=== PATIENT | female | born 1995 | race Caucasian/White ===

== ENCOUNTER 2023-12-11 17:38 | Emergency (ER) | payer BC, MEDICARE, SELFPAY ==
[2023-12-11 17:39] VITALS: BP 131/94
[2023-12-11 18:03] LABS: % Basophils 0.1 % (0-2); % Eosinophils 1.2 % (0-6); % Immature Granulocytes 0.3 % (0-0.5); % Lymphocytes 32.9 % (20.5-51.1); % Monocytes 8.5 % (1.7-9.3); Absolute Eosinophils 0.1 10^3/uL (0-0.7); Absolute Lymphocytes 2.6 10^3/uL (1.2-3.4); Absolute Monocytes 0.7 10^3/uL (0.1-0.6); Absolute Neutrophils 4.4 10^3/uL (1.4-6.5); Hematocrit 41.3 % (37.0-47.0); Hemoglobin 14.1 g/dL (12.0-16.0); Mean Corp Hgb Conc. 34.1 g/dL (33.0-37.0); Mean Corpuscular Hgb 32.3 pg (27.0-31.0); Mean Corpuscular Volume 94.7 fL (81.0-99.0); Mean Platelet Volume 9.2 fL (7.4-10.4); Nucleated Red Blood Cells % 0 %; Platelet Count 196 10^3/uL (130-400); Red Blood Cell Count 4.36 10^6/uL (4.20-5.40); Red Cell Dist. Width 12.3 % (11.5-14.5); White Blood Cell Count 7.8 10^3/uL (4.8-10.8)
[2023-12-11 18:18] LABS: Amphetamines Negative (Negative); Barbiturates Negative (Negative); Benzodiazepines Negative (Negative); Buprenorphine Negative (Negative); Cocaine Negative (Negative); Marijuana Negative (Negative); Methadone Negative (Negative); Methamphetamines Negative (Negative); Opiates Negative (Negative); Phencyclidine Negative (Negative); Tricyclic Antidepressants Negative (Negative)
[2023-12-11 18:18] LABS: Blood Urea Nitrogen 15 mg/dl (7-17); Calcium 8.6 mg/dl (8.4-10.2); Carbon Dioxide 29 mmol/L (22-30); Chloride 102 mmol/L (98-107); Glucose 95 mg/dl (70-99); Potassium 4.3 mmol/L (3.5-5.1); Sodium 135 mmol/L (135-145); eGFR > 60.00
[2023-12-11 18:24] LABS: Alcohol None Detected
--- NOTE | 2023-12-11 19:01 | ED.GENMED ---
History of Present Illness
General
Chief Complaint: Crisis Evaluation
Source: patient
Time Seen by Provider: 12/11/23 18:51
Travel History
Have you had any contact with someone who has COVID-19?: No
Do you have any symptoms of coronavirus? Fever > 100 degrees, chills, cough, shortness of breath, sore throat, loss of taste or smell, muscle aches, or headache?: No
History of Present Illness
History of Present Illness:
This patient is a 28-year-old female with a history of depression, lives in a retirement, who recently has been hearing voices. She presents emergency department for medical clearance before returning to crisis for further disposition/management of
her psychiatric illness. Patient denies any physical complaints. She is currently eating a sandwich when I enter the room. She denies chest pain, dyspnea, abdominal pain, urinary symptoms, headache, dizziness, or other complaints.
Past History
Past History
ED Past Medical History: Psychiatric (Depression.)
ED Past Surgical History: None
Social History
Tobacco: Non-smoker
Alcohol: None
Drug: None
Personal: Single
Living: with family
Family History
Family History: Other (Nonsignificant)
Phy Exam
Physical Exam
Physical Exam:
GENERAL: Alert , in no apparent distress
EYE: pupils equal and reactive
NECK: Supple, no significant adenopathy.
ENT: o/p clr, mmm.
CARDIAC: Regular rate and rhythm .
LUNGS: Clear breath sounds bilaterally, no acute respiratory distress, no wheezes/rales/rhonchi
ABDOMEN: Soft, without focal tenderness, no r/g, no cvat
NEUROLOGICAL: Alert and oriented, no focal neuro deficits
SKIN: Warm and dry, skin intact, right inner forearm with healing wounds, no associated secondary infection, no drainage streaking crepitus fluctuance..
MUSCULOSKELETAL: No edema, well perfused.
PSYCH: Flattened affect, admits to hearing voices
Course
Orders/Labs/Results
Orders:
Orders
12/11/23 17:53
Alcohol Urgent
Basic Metabolic Panel Urgent
Complete Blood Count/With Diff Urgent
HCG, Serum Qualitative Screen Urgent
Comment: ADD ON
12/11/23 17:54
Urine Drug Abuse Screen Urgent
Date Specimen was Collected: 12/11/23
Time Specimen was Collected: 17:44
12/11/23 19:02
Add On- LAB Urgent
Tests Added?: hcg (serum)
12/11/23 20:09
Lorazepam [Ativan] 2 mg .ROUTE .STK-MED ONE
12/11/23 20:11
Lorazepam [Ativan] 1 mg IM NOW STA
12/12/23 13:00
Fluvoxamine [Luvox] 150 mg PO DAILY
Fluvoxamine [Luvox] 50 mg PO TID
12/12/23 13:04
Olanzapine [Zyprexa] 5 mg PO Q6HPRN PRN
12/12/23 16:00
HydrOXYZINE [Atarax] 50 mg PO TID
12/12/23 20:00
Clonazepam [Klonopin] 0.5 mg PO BID
12/12/23 22:00
Olanzapine [Zyprexa] 5 mg PO HS
Abnormal Lab Results
12/11/23
17:53
MCH 32.3 H pg
(27.0-31.0)
Absolute Monos (auto) 0.7 H 10^3/uL
(0.1-0.6)
12/11/23 17:53
12/11/23 17:53
Vital Signs
Initial and Last Documented VS:
Initial Vital Signs
Temp Pulse Resp BP Pulse Ox
98.5 F 68 18 131/94 100
12/11/23 17:39 12/11/23 17:39 12/11/23 17:39 12/11/23 17:39 12/11/23 17:39
Last Documented Vital Signs
Temp Pulse Resp BP Pulse Ox
98.5 F 68 18 131/94 100
12/11/23 17:39 12/11/23 17:39 12/11/23 17:39 12/11/23 17:39 12/11/23 17:39
*Critical Care Note
Total Time (30-74mins, 75-104mins- exclusive of procedures): Not Applicable
Update Note
Update Note:
Patient presents to the Emergency Department with ____hearing voices, SI
Number and Complexity of Problems Addressed at the Encounter
� Chronic conditions affecting care:
� Acute Exacerbation and/or Progression of Chronic Illness:
� Differential Diagnosis includes: But not limited to schizophrenia, major depressive disorder, etc.
Amount and/or Complexity of Data to be Reviewed and Analyzed
� I performed an independent evaluation of and my interpretation is:
EKG:
CT:
Xrays:
Laboratory Studies:
Other:
� Review of other/old records reveals:
� Clinical information was obtained by an independent historian:
� Prescriptions/Medications Considered but not given:
� Further testing considered but not performed:
Risk of Complications and/or Morbidity or Mortality of Patient Management
� Social determinants of health affecting care:
� Discussion with other providers (PCP, Hospitalists, Consultants, etc):
� Escalation of care including admission/observation vs risk of discharge considered: Physical exam unremarkable, labs unremarkable here. I noticed that a hCG was not ordered. I added this on. Patient otherwise medically
cleared to return to crisis for further care.
ED Attending Note
-
Portions of this chart may have been created with voice recognition software.� Occasional wrong word or��sound alike� substitutions may have occurred due to the inherent limitations of voice recognition software.
Discharge Plan
Departure
Patient Disposition: [facility]
Date of Disposition: 12/11/23
Time of Disposition: 19:01
Condition: Fair
Discharge Problem:
Depression
Instructions: Depression, Adult (DC), BLOOD PRESSURE
Prescriptions:
No Action
acetaminophen [Tylenol] 325 mg Tablet
650 mg PO Q6H PRN (Reason: mild pain)
Triple Antibiotic 3.5mg-400 unit- 5,000 unit/gram ointment
1 applic TOPICAL BID@0800,1999
sucralfate 1 gram Tablet
1 g PO BID@0800,1600
naltrexone 50 mg Tablet
50 mg PO DAILY
clonazepam 0.5 mg Tablet
0.5 mg PO BID@1199,1999
Patient Comments:
12/12/2023, pt. filled this med. on 12/03/2023 for 22 tablets according to PDMP.
desmopressin 0.2 mg Tablet
0.2 mg PO DAILY@1999
hydroxyzine pamoate 50 mg Capsule
50 mg PO TID@0800,1199,1999
olanzapine 10 mg Tablet
10 mg PO DAILY PRN (Reason: agitation)
levocarnitine 330 mg Tablet
660 mg PO TID@0800,1199,1999
carbamazepine 200 mg tablet
200 mg PO TID@0800,1199,1999
valproic acid (as sodium salt) 250 mg/5 mL solution
750 mg PO DAILY
valproic acid (as sodium salt) 250 mg/5 mL solution
1,000 mg PO HS
lorazepam 2 mg Tablet
2 mg PO Q8HPRN PRN (Reason: anxiety)
Patient Comments:
12/12/2023, pt. filled this med. on 10/28/2023 for 15 tablets according to PDMP.
cephalexin 500 mg Capsule
500 mg PO TID
Patient Comments:
12/12/2023, per psych core assembly supervisor at [facility], pt. has 2 days left of this med. Pt. filled this med. on 12/03/2023 and is instructed to take one capsule TID for 10 days.
pantoprazole 40 mg Tablet,Delayed Release (Dr/Ec)
40 mg PO DAILY
docusate sodium 100 mg Capsule
100 mg PO BID@0800,1999
bismuth subsalicylate [Stomach Relief] 262 mg tablet,chewable
262 mg PO Q6HPRN PRN (Reason: indigestion)
fluvoxamine 50 mg Tablet
150 mg PO BID
polyethylene glycol 3350 17 gram/dose powder
17 g PO DAILY@1999
oxybutynin chloride 5 mg Tablet
5 mg PO BID@0800,1600
fluticasone propionate 50 mcg/actuation Walker,Suspension
1 spray INTRANASAL BID PRN (Reason: congestion)
prazosin 2 mg Capsule
2 mg PO HS
Vraylar 6 mg Capsule
6 mg PO DAILY@1999
Referrals:
Sol Castillo DO [Family Provider] -
Activity Restrictions/Additional Instructions:
PLEASE PROCEED TO THE CRISIS AREA FOR FURTHER TREATMENT AND CARE.
Interventions
Interventions:
*Risk Screen - Suicide Last Done: 12/11/23 18:50
*General Assessment Last Done: 12/11/23 18:50
*Neglect/Abuse Screening Last Done: 12/11/23 18:50
*ED COVID-19 Vaccine History Last Done: 12/11/23 18:50
*Nursing Disposition Last Done: 12/12/23 05:09
ED-Psychological Assessment Last Done: 12/11/23 18:50
Discharge Date and Time
Discharge Date/Time: 12/12/23 05:11
[2023-12-11 19:35] LABS: HCG, Serum Qualitative Screen Negative
[2023-12-11] MEDS: ATIVAN 1 MG IM (20:12)
--- NOTE | 2023-12-12 11:19 | CON.MD ---
Addendum entered and electronically signed by Consuelo Mckeon MD 12/12/23 12:37:
correction- Luvox ordered as 50 mg 3 q am
Addendum entered and electronically signed by Consuelo Mckeon MD 12/12/23 12:01:
Luvox not available in hospital, could not order.
Original Note:
Consultation - Medical
-
and [facility] charts reviewed; pt seen. -45 minutes total
28 year old single white female who lives in a longterm for psychiatric patients, began hearing voices more intensely and having suicidal ideation a few days ago. She came in to the ER to get help, seeking hospitalization.
I met with patient and reviewed chart.
Earlier today pt became acutely agitated and required restraints. She was given Ativan and Benadryl and at the moment I saw her had calmed down considerably and said she doesn't remember what happened at all. Her status has been changed from
voluntary to involuntary.
She was able to tell me that she had written a poem about killing herself and read it to her parents- which is the reason she came to the ER. She has frequent dissociative episodes, and the agitation she displayed earlier today is likely one
of these.
Her current meds- from the [facility] partial hosp program are :
Valproic acid 250 mg/5 ml - 15 mg 1 am and 20 mg 1 HS
Klonopin .5 mg BID
Hydroxyzine 50 mg TID
Olanzapine 10 mg prn agitation, and Olanzapine 5 mg prn agitation
Luvox 50 mg 2 q am
Naltrexone 50 mg 1 daily
It does not appear that she has received these meds since coming to the hospital
MSE- Young white female, lying in bed, drowsy but able to speak to me. Speech slightly slurred.
Admits to severely depressed mood, having thoughts of suicide, also hears voices 'all the time' which she cannot describe to me.
Insight and judgment impaired.
A/P- Schizoaffective disorder, currently depressed
Requires 302 to be upheld; we will continue looking for an inpatient facility for patient.
I will order her psych meds to ensure she doesn't have further agitation.
== END 2023-12-12 05:11 ==
LOC: EMR 17:38
PROVIDERS: EMERGENCY PHYSICIAN Emergency Medicine; FAMILY PHYSICIAN Family Medicine
DX: F32.A Depression, unspecified (principal)
CPT/HCPCS: 99284; 96372; 80048; 80306; 82077; 84703; 85025

== ENCOUNTER 2023-12-12 08:24 | Emergency (ER) | payer BC, MEDICARE, SELFPAY ==
[2023-12-12 08:29] VITALS: BP 138/86
--- NOTE | 2023-12-12 08:35 | EDRN ---
Pt is in crisis awaiting a room.
--- NOTE | 2023-12-12 08:35 | EDRN ---
Pt needs her usual medications and some are 4 times a day. This RN spoke to battery charger tester and Liliana suggested she get her usual meds brought in from her home so she can take her meds in crisis area.
[2023-12-12 09:12] VITALS: BP 125/88
--- NOTE | 2023-12-12 09:22 | EDRN ---
this RN received this pt from triage, the pt is calm, and cooperative with a flat affect, the pt was sent to ED from crisis for medications, the pt stated to this RN that she does not have a medication list and the pt called staff at [facility]
where the pt lives and the staff there read off the pts medications to this RN, this RN has made a list for pharmacy associate to review and confirm
[2023-12-12 09:27] VITALS: BMI 27.3
--- NOTE | 2023-12-12 09:30 | EDRN ---
the pt stated to this RN, 'I am sorry if i get weird or crazy, i hear voices sometimes, and sometimes i feel like i want to kill myself, i don't mean to hurt anyone', this RN asked the pt if she felt like she was going to hurt someone right now and
the pt denied wanting to hurt anyone, this RN placed the pt on intermittent observation
--- NOTE | 2023-12-12 09:55 | EDRN ---
the pt pressed the call alexander and this RN entered the pts room, the pt stated to this RN that she needed to use the bathroom, the pt was able to ambulate to the bathroom and back to the stretcher, the pt is resting in stretcher in the lowest
position, side rails up x1, HOB slightly elevated, call alexander within reach, the pt ate all of her breakfast, will continue to monitor the pt closely
--- NOTE | 2023-12-12 09:57 | ED.GENMED ---
History of Present Illness
General
Chief Complaint: Suicidal Ideation
Source: patient and other (inventory worker)
Time Seen by Provider: 12/12/23 09:51
Travel History
Have you had any contact with someone who has COVID-19?: No
Do you have any symptoms of coronavirus? Fever > 100 degrees, chills, cough, shortness of breath, sore throat, loss of taste or smell, muscle aches, or headache?: No
History of Present Illness
History of Present Illness:
Patient sent back to the ER for her medications. She has no acute complaints. This is all for her baseline medications which they cannot administer over crisis. Patient has been stable
Past History
Past History
ED Past Medical History: Psychiatric (Depression.)
ED Past Surgical History: None
Social History
Tobacco: Non-smoker
Alcohol: None
Drug: None
Personal: Single
Living: with family
Family History
Family History: Other (Nonsignificant)
Review of Systems
Review of Systems
All Other Systems: Not applicable
Constitutional: Denies fever
Respiratory: Reports no symptoms
Cardiac: Reports no symptoms
Phy Exam
Physical Exam
Physical Exam:
GENERAL: Alert and oriented in no apparent distress. Cooperative. Somewhat quiet. Watching TV
EYE: Orbits normal.
NECK: Supple
ENT: Pharynx without erythema
CARDIAC: Regular rate and rhythm without any obvious murmurs.
LUNGS: Clear breath sounds,normal
ABDOMEN: Soft, without focal tenderness or distention
NEUROLOGICAL: Alert and oriented , grossly non-focal
SKIN: Warm and dry, no rash or lesion, no discoloration, skin intact.
MUSCULOSKELETAL: No edema,no deformity.Good color
PSYCH: Normal and appropriate interaction.
Course
Orders/Labs/Results
Orders:
Orders
12/12/23 10:16
Haloperidol Lactate [Haldol] 5 mg .ROUTE .STK-MED ONE
Lorazepam [Ativan] 2 mg .ROUTE .STK-MED ONE
Lorazepam [Ativan] 2 mg IM NOW STA
12/12/23 10:19
1:1 Observation - Suicide/ Violent Behavior As Directed
One to One Observation - Suicide/Violent [1:1 Observation - Suicide/ Violent Behavior] As Directed
Restraints - Violent As Directed
Restraint Type-: Locked-4 point/4 rails
Apply From (date): 12/12/23
Apply from (time): 10:19
Remove (date): 12/12/23
Remove (time): 14:19
12/12/23 10:27
PSYCHIATRY CONSULT Urgent
Consulting Provider: Consuelo Mckeon
Was physician already notified: Yes
12/12/23 10:31
Diphenhydramine [Benadryl] 50 mg .ROUTE .STK-MED ONE
12/12/23 10:40
Diphenhydramine [Benadryl] 50 mg IV NOW STA
12/12/23 12:00
Valproic Acid Syrup [Depakene] 750 mg PO DAILY
12/12/23 12:26
1:1 Observation - Suicide/ Violent Behavior As Directed
Restraints - Violent As Directed
Restraint Type-: Locked-4 point/4 rails
Apply From (date): 12/12/23
Apply from (time): 14:19
Remove (date): 12/12/23
Remove (time): 16:26
12/12/23 15:00
Naltrexone HCl [Revia] 50 mg PO DAILY
Pantoprazole [Protonix] 40 mg PO DAILY
Polyethylene Glycol Powder [Miralax] 17 grams PO DAILY
12/12/23 15:20
Naltrexone HCl [Revia] 50 mg PO DAILY
Pantoprazole [Protonix] 40 mg PO DAILY
12/12/23 15:22
Polyethylene Glycol Powder [Miralax] 17 grams PO DAILY
12/12/23 16:00
Carbamazepine [Tegretol] 200 mg PO TID
HydrOXYZINE [Atarax] 50 mg PO TID
12/12/23 18:00
Cephalexin Monohydrate [Keflex] 500 mg PO QID
Valproic Acid Syrup [Depakene] 1,000 mg PO QPM
12/12/23 20:00
Clonazepam [Klonopin] 0.5 mg PO BID
Docusate Sodium [Colace] 100 mg PO BID
Fluvoxamine [Luvox] 150 mg PO BID
Oxybutynin Chloride [Ditropan] 5 mg PO BID
Sucralfate [Carafate] 1 gram PO BID
12/12/23 20:43
1:1 Observation - Suicide/ Violent Behavior As Directed
Restraints - Violent As Directed
Restraint Type-: Locked-4 point/4 rails
Apply From (date): 12/12/23
Apply from (time): 20:43
Remove (date): 12/13/23
Remove (time): 00:43
12/12/23 21:55
Lorazepam [Ativan] 1 mg IV NOW STA
12/12/23 21:56
Lorazepam [Ativan] 2 mg .ROUTE .STK-MED ONE
12/12/23 22:00
Desmopressin [Ddavp] 0.2 mg PO HS
Prazosin HCl [Minipress] 2 mg PO HS
Valproic Acid [Depakene] 250 mg PO HS
12/12/23 22:06
Asenapine Sublingual [Saphris] 10 mg SL NOW STA
12/13/23 17:24
Midazolam HCl [Versed] 5 mg IM NOW STA
12/13/23 17:25
Midazolam HCl [Versed] 5 mg .ROUTE .STK-MED ONE
12/13/23 17:43
Ketamine Concentrate Injection [Ketamine HCl] 310 mg IM NOW STA
12/13/23 17:53
Midazolam HCl [Versed] 5 mg IM NOW STA
12/13/23 19:05
Restraints - Violent As Directed
Restraint Type-: Locked-4 point/4 rails
Apply From (date): 12/13/23
Apply from (time): 17:15
Remove (date): 12/13/23
Remove (time): 19:15
12/13/23 22:00
Desmopressin [Ddavp] 0.2 mg PO HS
12/15/23 20:00
Fluvoxamine [Luvox] 150 mg PO BID
Oxybutynin Chloride [Ditropan] 5 mg PO BID
Vital Signs
Initial and Last Documented VS:
Initial Vital Signs
Temp Pulse Resp BP Pulse Ox
97.8 F 74 16 138/86 99
12/12/23 08:29 12/12/23 08:29 12/12/23 08:29 12/12/23 08:29 12/12/23 08:29
Last Documented Vital Signs
Temp Pulse Resp BP Pulse Ox
97.7 F 68 18 88/68 98
12/14/23 21:12 12/15/23 23:46 12/15/23 21:18 12/15/23 23:46 12/15/23 21:18
MDM/Problems Addressed
Differential Diagnosis Includes:
Patient has remained medically stable as a voluntary admission. No acute medical issues. Has returned to our department for routine medications. We are waiting to confirm these to order
*Critical Care Note
Total Time (30-74mins, 75-104mins- exclusive of procedures): Not Applicable
Data Reviewed
Review of Other/Old Records Reveals: Labs and Records
Update Note
Update Note:
1100... Already discussed with psychiatry. Agree with management. We could use Saphris if needed. However patient is resting comfortably after Ativan and Benadryl. Converted to 302. Awaiting med confirmation before ordering her baseline meds
ED Attending Note
-
Portions of this chart may have been created with voice recognition software.� Occasional wrong word or��sound alike� substitutions may have occurred due to the inherent limitations of voice recognition software.
Discharge Plan
Departure
Patient Disposition: Psych Facility
Date of Disposition: 12/12/23
Time of Disposition: 10:58
Discharge Problem:
Depression/dangerous behavior, Psychiatric committal
Prescriptions:
No Action
acetaminophen [Tylenol] 325 mg Tablet
650 mg PO Q6H PRN (Reason: mild pain)
Triple Antibiotic 3.5mg-400 unit- 5,000 unit/gram ointment
1 applic TOPICAL BID@0800,1999
sucralfate 1 gram Tablet
1 g PO BID@0800,1600
naltrexone 50 mg Tablet
50 mg PO DAILY
clonazepam 0.5 mg Tablet
0.5 mg PO BID@1199,1999
Patient Comments:
12/12/2023, pt. filled this med. on 12/03/2023 for 22 tablets according to PDMP.
desmopressin 0.2 mg Tablet
0.2 mg PO DAILY@1999
hydroxyzine pamoate 50 mg Capsule
50 mg PO TID@0800,1200,1999
olanzapine 10 mg Tablet
10 mg PO DAILY PRN (Reason: agitation)
levocarnitine 330 mg Tablet
660 mg PO TID@0800,1200,1999
carbamazepine 200 mg tablet
200 mg PO TID@0800,1200,1999
valproic acid (as sodium salt) 250 mg/5 mL solution
750 mg PO DAILY
valproic acid (as sodium salt) 250 mg/5 mL solution
1,000 mg PO HS
lorazepam 2 mg Tablet
2 mg PO Q8HPRN PRN (Reason: anxiety)
Patient Comments:
12/12/2023, pt. filled this med. on 10/28/2023 for 15 tablets according to PDMP.
cephalexin 500 mg Capsule
500 mg PO TID
Patient Comments:
12/12/2023, per psych field pipelines supervisor at [facility], pt. has 2 days left of this med. Pt. filled this med. on 12/03/2023 and is instructed to take one capsule TID for 10 days.
pantoprazole 40 mg Tablet,Delayed Release (Dr/Ec)
40 mg PO DAILY
docusate sodium 100 mg Capsule
100 mg PO BID@0800,1999
bismuth subsalicylate [Stomach Relief] 262 mg tablet,chewable
262 mg PO Q6HPRN PRN (Reason: indigestion)
fluvoxamine 50 mg Tablet
150 mg PO BID
polyethylene glycol 3350 17 gram/dose powder
17 g PO DAILY@1999
oxybutynin chloride 5 mg Tablet
5 mg PO BID@0800,1600
fluticasone propionate 50 mcg/actuation Hume,Suspension
1 spray INTRANASAL BID PRN (Reason: congestion)
prazosin 2 mg Capsule
2 mg PO HS
Vraylar 6 mg Capsule
6 mg PO DAILY@1999
Referrals:
NONE,* [Active] -
Interventions
Interventions:
*Risk Screen - Suicide Last Done: 12/12/23 08:33
*General Assessment Last Done: 12/12/23 09:27
*Neglect/Abuse Screening Last Done: 12/12/23 09:27
ED- Fall Risk Assessment Last Done: 12/12/23 09:27
*ED COVID-19 Vaccine History Last Done: 12/12/23 09:27
ED-Psychological Assessment Last Done: 12/14/23 08:30
--- NOTE | 2023-12-12 10:14 | EDRN ---
this RN heard the pt start to scream, this RN entered the pts room along with farm equipment service technician and the pt is screaming, 'Please stop stop hurting me stop pulling my hair get off of me get off of me', the pt is punching herself in the right side of the chest
and is scratching he throat, and kicking her legs against the stretcher, the pt continues to scream, 'get off of me get off of me, security and staff counsel have to keep the pt from choking herself with her hands, Dr. Garcia and charge nurse notified
[2023-12-12] MEDS: ATIVAN 2 MG IM (10:17)
--- NOTE | 2023-12-12 10:18 | EDRN ---
Ativan 2mg IM administered to the pt, the pt continues to attempt to kick staff and attempt to choke herself, the pt continues to attempt to choke herself and scratch herself, order four four points will be placed
[2023-12-12 10:28] VITALS: BP 156/118
[2023-12-12] MEDS: BENADRYL 50 MG IV (10:40)
[2023-12-12 10:46] VITALS: BP 124/84
--- NOTE | 2023-12-12 10:49 | EDRN ---
the pt is currently lying in stretcher in 4 point violent restraints, the pt is currently still crying and screaming and verbalizing wanting to hurt herself, one to one monitoring the pt, VS WNL, will continue to monitor the pt closely
--- NOTE | 2023-12-12 10:50 | EDRN ---
Yaritza from crisis came up to this RN at the nurses station and stated that her 302 was upheld
[2023-12-12 11:00] VITALS: BP 115/80
--- NOTE | 2023-12-12 11:20 | EDRN ---
psychiatrist and crisis staff currently at the pts bedside
--- NOTE | 2023-12-12 12:20 | PHANOTE ---
Addendum entered by Fabian Gupta 12/12/23 12:23:
12/12/2023, med rec tech, psych shipwright supervisor is Leanne Yanes.
Original Note:
12/12/2023, med rec tech, spoke to psych shipwright supervisor at [facility] (Leanne Richard; phone: [phone]) to obtain pt.'s med. history; used pharmacy fill data to confirm meds.
[2023-12-12] MEDS: TEGRETOL 200 MG PO ×2 (15:21→21:09)
[2023-12-12] MEDS: REVIA 50 MG PO (15:21)
[2023-12-12] MEDS: ATARAX 50 MG PO ×2 (15:21→21:09)
[2023-12-12] MEDS: DEPAKENE 750 MG PO (15:21)
[2023-12-12] MEDS: MIRALAX PO (16:43)
[2023-12-12] MEDS: DEPAKENE 1000 MG PO (17:48)
[2023-12-12] MEDS: PROTONIX 40 MG PO (17:49)
[2023-12-12] MEDS: KEFLEX 500 MG PO ×2 (17:49→21:09)
[2023-12-12 20:56] VITALS: BP 116/83
[2023-12-12] MEDS: DEPAKENE PO (20:58)
[2023-12-12] MEDS: KLONOPIN 0.5 MG PO (21:05)
[2023-12-12] MEDS: LUVOX 150 MG PO (21:05)
[2023-12-12] MEDS: COLACE 100 MG PO (21:05)
[2023-12-12] MEDS: CARAFATE 1 GRAM PO (21:05)
[2023-12-12] MEDS: DITROPAN 5 MG PO (21:06)
[2023-12-12] MEDS: DDAVP 0.200000000000000011 MG PO (21:06)
[2023-12-12] MEDS: MINIPRESS PO (21:58)
[2023-12-12] MEDS: ATIVAN 1 MG IV (22:00)
[2023-12-12] MEDS: SAPHRIS 10 MG SL (22:09)
[2023-12-13] MEDS: MIRALAX 17 GRAMS PO (07:51)
[2023-12-13] MEDS: DEPAKENE 750 MG PO (07:52)
[2023-12-13] MEDS: KLONOPIN 0.5 MG PO ×2 (07:52→20:11)
[2023-12-13] MEDS: TEGRETOL 200 MG PO ×3 (07:52→22:30)
[2023-12-13] MEDS: LUVOX 150 MG PO ×2 (07:52→20:12)
[2023-12-13] MEDS: PROTONIX 40 MG PO (07:52)
[2023-12-13] MEDS: ATARAX 50 MG PO ×3 (07:52→22:31)
[2023-12-13] MEDS: REVIA 50 MG PO (07:52)
[2023-12-13] MEDS: COLACE 100 MG PO ×2 (07:53→20:10)
[2023-12-13] MEDS: DITROPAN 5 MG PO ×2 (07:53→20:12)
[2023-12-13] MEDS: CARAFATE 1 GRAM PO ×2 (07:53→20:11)
[2023-12-13] MEDS: KEFLEX 500 MG PO ×4 (07:53→22:30)
[2023-12-13 07:59] VITALS: BP 122/83
[2023-12-13 11:30] VITALS: BP 125/87
--- NOTE | 2023-12-13 11:41 | EDRN ---
Pt has no complaints when checked, dressing to L forearm clean, dry and intact. OOB to BR and changed. This RN spoke to crisis and pt is to have 303 hearing tomorrow so no placement for today.
--- NOTE | 2023-12-13 15:55 | W.PN.UPDATE ---
Update Note
Progress Note Update
Pt seen, alert, oriented, calm, cooperative. Affect detached. Pt reports continued SI with plans, though she states she will not act on them here, has no means available. Pt c/o continued A/V hallucinations (ongoing/chronic), negative voices,
sees squirrels. Pt appears to have limited insight, though she accepts the need for treatment, initially came in voluntarily for treatment. Pt states she 'zoned out and became violent', but denies recall of her actual behaviors, reports the
happened last Wed at [facility], as well as yesterday and Wednesday since arrival at Crisis/ED. Pt states she would be willing to go inpatient, as long as not at the [facility] or [facility]. Pt reports she was hospitalized most of last year- in ICU
after an OD, then inpatient for [address] [facility], then transferred to extended acute unit at [facility]. Discussed with Crisis staff, who report pt resides at [facility] long-term staffed residential program.
Imp: Schizoaffective d/o
Rec: filing for 303 hearing tomorrow; continue search for inpatient psych placement
continue current/existing psych meds
--- NOTE | 2023-12-13 16:13 | EDRN ---
Odered from pharmacy 1000 mg valproic acid syrup.
[2023-12-13] MEDS: VERSED 5 MG IM (17:25)
--- NOTE | 2023-12-13 17:56 | ED.CRISIS ---
ED Crisis Note
ED Crisis Note
Subjective:
28-year-old female here on a involuntary commitment for suicidal ideation. I was called by the nurse because she is becoming acutely agitated and trying to harm herself.
Objective:
Patient is flailing her arms, trying to bite herself, thrashing at staff members, screaming at the top of her lungs that she wants to hurt herself.
Assessment/Plan:
28-year-old female here on involuntary commitment for suicidal ideation now acutely agitated. Dosed with 5 mg of IM Versed for agitation. She was placed in restraints briefly. Will wean restraints as chemical sedation kicks in and continue to
monitor.
[2023-12-13] MEDS: DEPAKENE 1000 MG PO (18:46)
--- NOTE | 2023-12-13 19:16 | EDRN ---
Addendum entered by Catarina Argueta RN 12/14/23 16:05:
Mitt was only placed to R hand to prevent pt from biting that hand as she had not been going towards L hand. Mitt was secured to hand under restraint and not to any other device. Pt was able to get to mitt and bite it but not her fingers.
Original Note:
At 17:15 this RN was called to pt's stretcher side for escalating agitation. Pt had been calm and cooperative all day. Pt now lashing out, attempting to bite herself and security, attempting to hurt her arms and legs on bottom of bed and metal
rails. This RN spoke to Dr. Hartman who ordered Midazolam which was administered at 17:25. Pt was unable to be totally subdued w/ 4 point locked restraints until 17:30. pt fighting the entire time, trying desperately to slide down stretcher w/ two
restraints in place. Pt continuing to bite herself. Seizure pads placed on rails to protect pt from metal bars. Restraints finally in place at 17:35. pt still moving down bed and trying to get to bottom to bang her feet and get off of bed. Pt also
attempting to bite and hurt security. Charge Nurse Tamar to room and mitts brought to place for pt's hands to prevent pt from biting her hands. Only able to place one mitt. Dr. Hartman called again as pt still in full agressive mode attempting to get
out of the restraints. Ketamine was ordered at 17:33 but when about to draw up pt calmed down and was able to follow direction and no longer hurting herself so, ketamine was wasted w/ Ana Cristina PEÑA. This RN returned to room and checked all pulses and all
present. Pt somnolent and allowing security to redirect her to calming and not hurting herself. All pulses present and skin intact, kaylee radial and kaylee dorsalis pedis at this time. Pt rechecked at 18:00 and all pulses intact w/ skin intact. Pt was
calm though still with slight periods of starting to get agitated again. Moving fingers and skin of wrists and ankles intact. Pt asleep at 18:30 and w/ all skin intact and all pulses present. ROM not checked at this time. At 19:00 pt awake and took
her 18:00 medications at this time calmly w/ water. Pt requested to have stuffed animal in bed w/ her and it was placed at her side. Pt requested TV and it was turned on w/ channel it was on checked as OK w/ pt. Pt's stretcher turned for better TV
viewing so she did not have to strain her neck. Pt had all pulses present and skin intact on all four extremities.
[2023-12-13 20:18] VITALS: BP 123/85
[2023-12-13] MEDS: MINIPRESS 2 MG PO (22:27)
[2023-12-13] MEDS: DEPAKENE 250 MG PO (22:30)
[2023-12-13] MEDS: DDAVP 0.200000000000000011 MG PO ×2 (22:32→22:37)
[2023-12-14] MEDS: MIRALAX 17 GRAMS PO (08:25)
[2023-12-14] MEDS: KEFLEX 500 MG PO ×4 (08:26→23:20)
[2023-12-14] MEDS: ATARAX 50 MG PO ×3 (08:26→23:20)
[2023-12-14] MEDS: LUVOX 150 MG PO ×2 (08:26→21:04)
[2023-12-14] MEDS: TEGRETOL 200 MG PO ×3 (08:26→23:20)
[2023-12-14] MEDS: CARAFATE 1 GRAM PO ×2 (08:26→20:16)
[2023-12-14] MEDS: KLONOPIN 0.5 MG PO ×2 (08:26→20:16)
[2023-12-14] MEDS: PROTONIX 40 MG PO (08:26)
[2023-12-14] MEDS: DEPAKENE 750 MG PO (08:28)
[2023-12-14] MEDS: REVIA 50 MG PO (08:29)
[2023-12-14] MEDS: DITROPAN 5 MG PO ×2 (08:29→21:04)
[2023-12-14] MEDS: COLACE 100 MG PO ×2 (08:29→20:16)
[2023-12-14 08:30] VITALS: BP 123/83
--- NOTE | 2023-12-14 11:01 | W.PN.UPDATE ---
Update Note
Progress Note Update
303 MH hearing held; pt stipulated/ was ordered up to 14 days of inpatient treatment. No overall change in mental status, with SI and reported A/V hallucinations.
Imp: Schizoaffective d/o
Rec: continue current medications. Inpatient psych placement on 303
[2023-12-14] MEDS: DEPAKENE 1000 MG PO (18:38)
--- NOTE | 2023-12-14 21:00 | EDRN ---
Pt showered, brushed hair and put in new paper scrubs.
[2023-12-14 21:12] VITALS: BP 139/87
[2023-12-14] MEDS: MINIPRESS 2 MG PO (23:20)
[2023-12-14] MEDS: DEPAKENE 250 MG PO (23:20)
[2023-12-14] MEDS: DDAVP 0.200000000000000011 MG PO (23:20)
--- NOTE | 2023-12-15 04:20 | DOWNTIME ---
There was a [employer] Downtime on 12/15/2023 from 0111 to 12/15/2023 at 0405. Downtime documentation of patient's care, including medication administrations, has been reconciled in the electronic record per guidelines. Refer to the
patient's paper chart under the miscellaneous tab to see printed paper medication records and downtime forms.
[2023-12-15] MEDS: MIRALAX 17 GRAMS PO (08:30)
[2023-12-15] MEDS: KEFLEX 500 MG PO ×4 (08:30→22:50)
[2023-12-15] MEDS: PROTONIX 40 MG PO (08:31)
[2023-12-15] MEDS: KLONOPIN 0.5 MG PO ×2 (08:31→21:08)
[2023-12-15] MEDS: COLACE 100 MG PO ×2 (08:31→21:08)
[2023-12-15] MEDS: ATARAX 50 MG PO ×3 (08:31→22:50)
[2023-12-15] MEDS: TEGRETOL 200 MG PO ×3 (08:32→22:50)
[2023-12-15] MEDS: CARAFATE 1 GRAM PO ×2 (08:32→21:08)
[2023-12-15] MEDS: DEPAKENE 750 MG PO (09:15)
[2023-12-15] MEDS: LUVOX 150 MG PO ×2 (09:16→21:08)
[2023-12-15] MEDS: REVIA 50 MG PO (09:17)
[2023-12-15 09:32] VITALS: BP 128/85
[2023-12-15] MEDS: DITROPAN 5 MG PO ×2 (09:55→21:08)
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
[2023-12-15] MEDS: DEPAKENE 1000 MG PO (19:22)
[2023-12-15] MEDS: DITROPAN PO (21:12)
[2023-12-15] MEDS: LUVOX PO (21:12)
[2023-12-15 21:18] VITALS: BP 123/89
[2023-12-15] MEDS: DEPAKENE 250 MG PO (22:50)
[2023-12-15] MEDS: MINIPRESS PO (23:46)
[2023-12-15] MEDS: DDAVP 0.200000000000000011 MG PO (23:47)
--- NOTE | 2023-12-16 06:36 | ED.CRISIS ---
ED Crisis Note
ED Crisis Note
Subjective:
Had been sleeping overnight w/o complaints
Objective:
Had a low BP reading last evening
Assessment/Plan:
RN to check BP today; possible plan for outpatient management as she has been unable to be placed elsewhere
[2023-12-16 09:07] VITALS: BP 121/90
[2023-12-16] MEDS: CARAFATE 1 GRAM PO ×2 (09:33→21:25)
[2023-12-16] MEDS: ATARAX 50 MG PO (09:33)
[2023-12-16] MEDS: DEPAKENE 750 MG PO (09:33)
[2023-12-16] MEDS: COLACE 100 MG PO ×2 (09:33→21:25)
[2023-12-16] MEDS: KEFLEX 500 MG PO ×2 (09:34→13:33)
[2023-12-16] MEDS: KLONOPIN 0.5 MG PO ×2 (09:34→21:25)
[2023-12-16] MEDS: LUVOX 150 MG PO (09:34)
[2023-12-16] MEDS: DITROPAN 5 MG PO ×2 (09:34→23:04)
[2023-12-16] MEDS: REVIA 50 MG PO (09:35)
[2023-12-16] MEDS: TEGRETOL 200 MG PO ×3 (09:35→22:54)
[2023-12-16] MEDS: PROTONIX 40 MG PO (09:35)
[2023-12-16] MEDS: MIRALAX 17 GRAMS PO (09:52)
[2023-12-16 09:59] VITALS: BMI 28.1
[2023-12-16 12:00] VITALS: BP 110/73
--- NOTE | 2023-12-16 15:01 | W.PN.UPDATE ---
Update Note
Progress Note Update
patient seen chart reviewed. breanne continues to feel unsafe. we talked about a lot of her anxieties and fears. she showed me a lot of her drawings and writings. she also told me her father is not in favor of changes in her meds but when i
explained to her that she has told me repeatedly that meds currently don't help her she did agree that it might be a good idea to cut back on some. would cut back atarax to 25 mg tid. also i am not convinced she has ocd, i do not hear any ocd sx.
she is on the top dose of luvox and given what i have seen it is not helping her. she was on the top dose of vraylar 6 mg but feels no different after not having it for a week. will reconsider this but would not start vraylar at this point. no
hospital is willing to take her at this point she is on the wait list for [facility].
--- NOTE | 2023-12-16 15:55 | ED.CRISIS ---
ED Crisis Note
ED Crisis Note
Subjective:
Complains of SI
Objective:
intermittently screaming and yelling. No respiratory distress
Assessment/Plan:
Pt seen by Xuan. Pt on 302. I ordered 2mg IM ativan per psych request
[2023-12-16] MEDS: ATIVAN 2 MG IM (16:00)
--- NOTE | 2023-12-16 16:01 | W.PN.UPDATE ---
Update Note
Progress Note Update
patient became acutely threatening and agitated. this documentation writer had spoken to her about changes in her psychiatric medication and she was agreeable. attempted to explain to her again that she had not had vraylar bc it is not formulary here and it did
not make sense to restart when she looked no different with or without it. (i had seen her some weeks ago and she appeared much the same with similar excursions into being suicidal or acutely contemplating self harm. it is not clear what transpired
subsequently that made her change her mind about tapering her medications. ?she may have talked to a parent but she essentially became out of control attempting to leave and refusing to go back into her room screaming and yelling . she was given 2
mg ativan im and placed in restraints. will attempt to talk with her when she is able to engage.
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
[2023-12-16] MEDS: ATARAX 25 MG PO ×2 (17:26→22:54)
[2023-12-16] MEDS: DEPAKENE 1000 MG PO (17:53)
[2023-12-16 22:53] VITALS: BP 121/84
[2023-12-16] MEDS: DEPAKENE 250 MG PO (22:54)
[2023-12-16] MEDS: DDAVP 0.200000000000000011 MG PO (22:55)
[2023-12-16] MEDS: MINIPRESS 2 MG PO (22:55)
[2023-12-16] MEDS: LUVOX 100 MG PO (22:56)
[2023-12-17 08:50] VITALS: BP 136/71
[2023-12-17] MEDS: CARAFATE 1 GRAM PO ×2 (08:51→19:12)
[2023-12-17] MEDS: PROTONIX 40 MG PO (08:52)
[2023-12-17] MEDS: COLACE 100 MG PO ×2 (08:52→19:12)
[2023-12-17] MEDS: ATARAX 25 MG PO ×3 (08:52→21:53)
[2023-12-17] MEDS: TEGRETOL 200 MG PO ×3 (08:52→21:54)
[2023-12-17] MEDS: DITROPAN 5 MG PO ×2 (08:53→19:12)
[2023-12-17] MEDS: KLONOPIN 0.5 MG PO ×2 (08:53→19:12)
[2023-12-17] MEDS: REVIA 50 MG PO (08:53)
[2023-12-17] MEDS: LUVOX 150 MG PO (08:53)
[2023-12-17] MEDS: DEPAKENE 750 MG PO (08:54)
[2023-12-17] MEDS: MIRALAX 17 GRAMS PO (08:58)
[2023-12-17 09:00] VITALS: BMI 27.6
--- NOTE | 2023-12-17 09:05 | EDRN ---
this RN noticed that there is a dressing in place on the pts right forearm where the pt had bit herself, no c/o pain at site, no c/o drainage, will continue to monitor the pt closely
--- NOTE | 2023-12-17 09:05 | EDRN ---
this RN entered the pts room and the pt was calm, pleasant, and cooperative, the pt allowed this RN to obtain vital signs, VS WNL, the pt was compliant with taking AM medications, the pt is sitting on the side of the stretcher coloring, the pt
stated that she ordered breakfast, the pt denies needing anything at this time, will continue to monitor the pt closely
--- NOTE | 2023-12-17 11:53 | EDRN ---
This RN was in to speak w/ pt and she said her mother is attempting to get the med that she has not been on since she arrived. She stated her mother is attempting to reach facility pt was in and if she cannot mother will drive over to get medication
that is left to bring it here. This RN called crisis and structural worker said that Dr. Gilbert is planning to order a med that is here as a substitution for med our pharmacy does not have.
[2023-12-17 12:03] VITALS: BP 102/60
--- NOTE | 2023-12-17 12:39 | W.PN.UPDATE ---
Update Note
Progress Note Update
patient seen chart reviewed. breanne and i discussed what happened yesterday. she acknowledges that when she becomes upset she can easily get overwhelmed and can no longer see the forest for the trees.....we processed the issue that was at hand. we
had talked about tapering some of her meds. her mother expressed apprehension about this feeding breanne's anxiety. then a nurse told her 'i have to take care of a patient who is really sick (i heard this being said) one thing led to another and she
exploded. she does acknowledge that this needs to change and she needs to express what she is feeling in a reasonable manner well before she gets to the overwhelmed stage i pointed out to her that she and i had had reasonable conversations about
her medications and she had no reason to think i would not listen to her and discuss this with her. she did not need to become aggressive and wind up in restraints. before this happens she needs to think about and see the whole picture not simply
give rein to her rage. today we revisited the idea of medication changes . she is in agreement with reducing the vraylar to start to 4.5 mg . other changes which were ordered yesterday were reviewed. our goal is to get breanne to a place where she
can be safe and return to [facility] hopefully next week.
--- NOTE | 2023-12-17 12:59 | EDRN ---
Pharmacist asked to verify vraylar ordered for tonight at 22:00 at this time.
[2023-12-17] MEDS: DEPAKENE 1000 MG PO (19:13)
[2023-12-17 21:50] VITALS: BP 130/92
[2023-12-17] MEDS: MINIPRESS 2 MG PO (21:53)
[2023-12-17] MEDS: NON-FORMULARY ITEM 4.5 MG PO (21:53)
[2023-12-17] MEDS: DEPAKENE 250 MG PO (21:54)
[2023-12-17] MEDS: LUVOX 100 MG PO (21:54)
[2023-12-17] MEDS: DDAVP 0.200000000000000011 MG PO (21:54)
[2023-12-18 08:20] VITALS: BP 124/78
[2023-12-18] MEDS: REVIA 50 MG PO (08:29)
[2023-12-18] MEDS: LUVOX 150 MG PO (08:30)
[2023-12-18] MEDS: PROTONIX 40 MG PO (08:30)
[2023-12-18] MEDS: COLACE 100 MG PO ×2 (08:30→19:31)
[2023-12-18] MEDS: TEGRETOL 200 MG PO ×3 (08:31→21:25)
[2023-12-18] MEDS: KLONOPIN 0.5 MG PO ×2 (08:31→19:31)
[2023-12-18] MEDS: DITROPAN 5 MG PO ×2 (08:31→19:31)
[2023-12-18] MEDS: CARAFATE 1 GRAM PO ×2 (08:31→19:31)
[2023-12-18] MEDS: ATARAX 25 MG PO ×3 (08:32→21:24)
[2023-12-18] MEDS: DEPAKENE 750 MG PO (08:32)
[2023-12-18] MEDS: MIRALAX 17 GRAMS PO (08:33)
--- NOTE | 2023-12-18 13:34 | W.PN.UPDATE ---
Update Note
Progress Note Update
Pt seen, chart reviewed. Pt alert, oriented, calm at present. States she was 'suicidal and crying' last night, feels a little better today, anticipates visit from her parents. Pt was able to restart established med Vraylar- brought in due to
non-formulary.
Mental status overall unchanged, last episode of agitation was 12/16/23- 2 days ago.
Imp: Schizoaffective d/o
Rec:� continue current medications.� Inpatient psych placement on 303. If unable to find accepting facility, pt should be able to return to her [facility] staffed residential [facility] when more stable
[2023-12-18 17:50] VITALS: BP 128/78
[2023-12-18] MEDS: DEPAKENE 1000 MG PO (18:37)
[2023-12-18] MEDS: NON-FORMULARY ITEM 4.5 MG PO (20:43)
[2023-12-18] MEDS: LUVOX 100 MG PO (21:25)
[2023-12-18] MEDS: MINIPRESS 2 MG PO (21:28)
[2023-12-18] MEDS: DDAVP 0.200000000000000011 MG PO (21:29)
[2023-12-18 22:29] VITALS: BP 118/82
[2023-12-19 09:20] VITALS: BP 129/75
[2023-12-19] MEDS: LUVOX 150 MG PO (09:20)
[2023-12-19] MEDS: COLACE 100 MG PO ×2 (09:21→20:09)
[2023-12-19] MEDS: KLONOPIN 0.5 MG PO ×2 (09:21→20:09)
[2023-12-19] MEDS: ATARAX 25 MG PO ×3 (09:21→21:16)
[2023-12-19] MEDS: DITROPAN 5 MG PO ×2 (09:22→20:09)
[2023-12-19] MEDS: TEGRETOL 200 MG PO ×3 (09:22→21:17)
[2023-12-19] MEDS: PROTONIX 40 MG PO (09:22)
[2023-12-19] MEDS: REVIA 50 MG PO (09:22)
[2023-12-19] MEDS: DEPAKENE 750 MG PO (09:23)
[2023-12-19] MEDS: CARAFATE 1 GRAM PO ×2 (09:23→20:10)
[2023-12-19] MEDS: MIRALAX 17 GRAMS PO (09:32)
--- NOTE | 2023-12-19 11:32 | W.PN.UPDATE ---
Update Note
Progress Note Update
Pt seen, discussed with Crisis staff. No further behavior incidents since 12/16. Pt alert, oriented, calm, cooperative, showed me drawings in which she tried to depict feeling in distress/depressed. Pt states SI is off and on. No overt signs of
hallucinations. No side effects evident on medication regimen. Pt states visit from parent was good. She states she still feels like she needs to be a psych facility.
Imp:� Schizoaffective d/o
Rec:� continue current medications.� Inpatient psych placement on 303- thus far declined by all facilities. Crisis staff looking at possibility of referral to the [facility]. [facility].
[2023-12-19] MEDS: DEPAKENE 1000 MG PO (17:10)
[2023-12-19 18:25] VITALS: BP 122/76
[2023-12-19] MEDS: NON-FORMULARY ITEM 4.5 MG PO (21:15)
[2023-12-19] MEDS: LUVOX 100 MG PO (21:16)
[2023-12-19] MEDS: DDAVP 0.200000000000000011 MG PO (21:16)
[2023-12-19] MEDS: MINIPRESS 2 MG PO (22:00)
[2023-12-19 23:30] VITALS: BP 118/82
[2023-12-20 09:15] VITALS: BP 129/86
[2023-12-20] MEDS: REVIA 50 MG PO (09:19)
[2023-12-20] MEDS: LUVOX 150 MG PO (09:19)
[2023-12-20] MEDS: TEGRETOL 200 MG PO ×3 (09:19→20:41)
[2023-12-20] MEDS: KLONOPIN 0.5 MG PO ×2 (09:20→20:40)
[2023-12-20] MEDS: CARAFATE 1 GRAM PO ×2 (09:20→20:41)
[2023-12-20] MEDS: PROTONIX 40 MG PO (09:20)
[2023-12-20] MEDS: DITROPAN 5 MG PO ×2 (09:20→20:39)
[2023-12-20] MEDS: COLACE 100 MG PO ×2 (09:21→20:41)
[2023-12-20] MEDS: ATARAX 25 MG PO ×3 (09:21→20:41)
[2023-12-20] MEDS: DEPAKENE 750 MG PO (09:23)
[2023-12-20] MEDS: MIRALAX 17 GRAMS PO (09:24)
--- NOTE | 2023-12-20 13:48 | W.PN.UPDATE ---
Update Note
Progress Note Update
Pt seen, alert, oriented, calm, cooperative, sitting up on stretcher. Pt coloring with crayons. Pt c/o feeling depressed, worse at night, showed me a multi-colored note written in crayon, saying goodbye to everyone, apologizing and talking about
no longer being in pain. Pt has a manipulative presentation with detached affect. Pt states she was afraid the psychiatrist will lower her medications. Pt is on multiple psychotropic meds, including high-dose Luvox. Pt asking about schedule,
since she states she used to receive more meds at noon-time. No overt signs of side effects. No further behavioral incidents since 12/16.
Imp: Schizoaffective d/o
Rec:� continue current medications.� Inpatient psych placement on 303- thus far declined by all facilities.� Crisis staff looking at possibility of referral to the [facility].� Pt will ultimately return to [facility] residential prog when fully
stabilized.
[2023-12-20 16:00] VITALS: BP 128/90
[2023-12-20] MEDS: DEPAKENE 1000 MG PO (18:09)
[2023-12-20] MEDS: LUVOX 100 MG PO (20:40)
[2023-12-20] MEDS: DDAVP 0.200000000000000011 MG PO (20:40)
[2023-12-20 20:47] VITALS: BP 118/78
[2023-12-20] MEDS: NON-FORMULARY ITEM 4.5 MG PO (22:17)
[2023-12-20] MEDS: MINIPRESS 2 MG PO (22:18)
[2023-12-21] MEDS: DITROPAN 5 MG PO ×2 (08:30→19:54)
[2023-12-21] MEDS: REVIA 50 MG PO (08:31)
[2023-12-21] MEDS: KLONOPIN 0.5 MG PO ×2 (08:31→19:54)
[2023-12-21] MEDS: COLACE 100 MG PO ×2 (08:31→19:54)
[2023-12-21] MEDS: ATARAX 25 MG PO ×3 (08:31→21:41)
[2023-12-21] MEDS: CARAFATE 1 GRAM PO ×2 (08:32→19:54)
[2023-12-21] MEDS: TEGRETOL 200 MG PO ×3 (08:32→21:41)
[2023-12-21] MEDS: PROTONIX 40 MG PO (08:32)
[2023-12-21] MEDS: DEPAKENE 750 MG PO (08:37)
[2023-12-21] MEDS: LUVOX 150 MG PO (08:37)
[2023-12-21] MEDS: MIRALAX 17 GRAMS PO (09:26)
[2023-12-21 09:34] VITALS: BP 124/89
--- NOTE | 2023-12-21 14:01 | W.PN.UPDATE ---
Update Note
Progress Note Update
Pt seen, reviewed with Crisis staff. Pt somewhat more anxious, stating she does not feel ready to return to outpatient treatment. Pt noted with urinary accidents, which has happened before per pt. She states her parents are visiting this
afternoon. Pt alert, with steady gait, appropriate affect, good eye contact, no EPS evident.
Imp: :� Schizoaffective d/o, on 303 commitment
Rec:� continue current medications.� Inpatient psych placement on 303- thus far declined by all facilities.� Pt was considered for the [facility], but reportedly not accepted.� [facility]
[2023-12-21] MEDS: ATIVAN 2 MG IM (17:25)
--- NOTE | 2023-12-21 17:40 | EDRN ---
Received a call from Security that the patient has been in the bathroom for a while and will not answer him. Patient in bathroom crying. Repeatedly asked the patient what is wrong and what this RN could do to help her. Patient kept stating 'I am
okay. I don't need any help'. Patient refusing to come out of the bathroom. Asked the patient to please come out of the bathroom and come sit and talk about what is upsetting her. Patient refused to come out and kept saying 'I am okay.' This RN
heard a popping sound coming from the bathroom. This RN told the patient that I was coming in the bathroom to make sure that she was okay and safe. This RN went into the bathroom and found the patient standing in the corner crying and biting her
arms on the previous bite jackson. Asked the patient to please come out of the bathroom so we can talk and to look at her arms. Patient reluctantly walked back to the stretcher. Patient insisting that she is okay and does not need anybody's help. Told
patient that I was going to get to come look at her arms. When this RN and came back into Crisis patient was in the bathroom biting her arms. Patient came back to the room and continued to bite at her arms and was getting
more agitated. Patient placed in 4 point restraints per and medicated with Ativan 2mg IM. Patient crying that the voices in her head are getting worse and are telling her that 'You're no good and need to hurt yourself. No one cares about
you.' notified and attempting to get in touch with psychiatry.
[2023-12-21 19:05] VITALS: BP 115/75
--- NOTE | 2023-12-21 19:05 | EDRN ---
Patient calm and cooperative. Patient stated that she will tell staff when she is beginning to feel upset and sad and wants to hurt herself. Restraints removed.
[2023-12-21] MEDS: DEPAKENE 1000 MG PO (19:14)
--- NOTE | 2023-12-21 19:39 | ED.CRISIS ---
ED Crisis Note
ED Crisis Note
Subjective:
28-year-old female in emergency department for over 9 days for suicidal ideation, schizophrenia. I was called to room because patient is hearing voices that are telling her to bite herself. She has bitten bilateral arms. Bites are superficial.
Will continue to treat with bacitracin. Patient given IM Ativan for chemical restraint, and then placed in restraints. She did improve afterwards and was able to be taken out of her restraints
Objective:
28-year-old female tearful walking around room, superficial wounds on bilateral arms. No signs of infection or deep wound
Assessment/Plan:
Patient on 302, being followed by psychiatry, continue to await disposition. Treat wounds with bacitracin and dressings. Unable to place Jacek bandage as it is a risk to patient.
[2023-12-21] MEDS: LUVOX 100 MG PO (21:41)
[2023-12-21] MEDS: MINIPRESS 2 MG PO (21:41)
[2023-12-21] MEDS: DDAVP 0.200000000000000011 MG PO (21:41)
[2023-12-21] MEDS: NON-FORMULARY ITEM 4.5 MG PO (21:42)
[2023-12-22 07:16] VITALS: BP 118/80
[2023-12-22] MEDS: MIRALAX 17 GRAMS PO (07:58)
[2023-12-22] MEDS: LUVOX 150 MG PO (07:59)
[2023-12-22] MEDS: TEGRETOL 200 MG PO ×3 (07:59→21:54)
[2023-12-22] MEDS: CARAFATE 1 GRAM PO ×2 (08:00→20:09)
[2023-12-22] MEDS: REVIA 50 MG PO (08:01)
[2023-12-22] MEDS: DITROPAN 5 MG PO ×2 (08:01→20:09)
[2023-12-22] MEDS: KLONOPIN 0.5 MG PO ×2 (08:01→20:09)
[2023-12-22] MEDS: COLACE 100 MG PO ×2 (08:01→20:10)
[2023-12-22] MEDS: DEPAKENE 750 MG PO (08:02)
[2023-12-22] MEDS: ATARAX 25 MG PO ×3 (08:02→21:53)
[2023-12-22] MEDS: PROTONIX 40 MG PO (08:02)
--- NOTE | 2023-12-22 15:56 | W.PN.UPDATE ---
Update Note
Progress Note Update
patient seen chart reviewed. breanne had a period of agitation yesterday. she was upset that she remains here and there is no disposition. it is understandable that she is frustrated being in a small room with no windows with no ongoing therapy .
asked her to think about how she might express this more healthily...writing...talking to staff etc. discussed how her great fear is ending up in a state hospital but this of course is the type of reaction that will end up precipitating this. she
is at the point even now where no hospital will accept her. we talked about if there are a few days of reasonable respone which there had been sat sun wednesday we might discuss her being dc wednesday back [facility] and eventual [facility]. our staff
came in and met w her also talked to her parents and called [facility] for an update. will check depakote level in the am. continue w current meds
[2023-12-22] MEDS: DEPAKENE 1000 MG PO (18:16)
[2023-12-22] MEDS: MINIPRESS 2 MG PO (21:52)
[2023-12-22] MEDS: DDAVP 0.200000000000000011 MG PO (21:54)
[2023-12-22] MEDS: NON-FORMULARY ITEM 4.5 MG PO (21:55)
[2023-12-22] MEDS: LUVOX 100 MG PO (21:55)
[2023-12-23 08:46] VITALS: BP 120/86
[2023-12-23] MEDS: MIRALAX 17 GRAMS PO (09:00)
[2023-12-23] MEDS: DEPAKENE 750 MG PO (09:01)
[2023-12-23] MEDS: LUVOX 150 MG PO (09:01)
[2023-12-23] MEDS: PROTONIX 40 MG PO (09:02)
[2023-12-23] MEDS: DITROPAN 5 MG PO ×2 (09:02→20:39)
[2023-12-23] MEDS: ATARAX 25 MG PO ×3 (09:03→22:23)
[2023-12-23] MEDS: REVIA 50 MG PO (09:03)
[2023-12-23] MEDS: KLONOPIN 0.5 MG PO ×2 (09:03→20:26)
[2023-12-23] MEDS: CARAFATE 1 GRAM PO ×2 (09:04→20:26)
[2023-12-23] MEDS: COLACE 100 MG PO ×2 (09:04→20:26)
[2023-12-23] MEDS: TEGRETOL 200 MG PO ×3 (09:04→22:23)
[2023-12-23 09:17] LABS: Depakane 42.3 ug/ml (50.0-120.0)
--- NOTE | 2023-12-23 10:46 | W.PN.UPDATE ---
Addendum entered and electronically signed by Daly Gilbert MD 12/23/23 11:07:
carafate should be bid
Original Note:
Update Note
Progress Note Update
patient seen chart reviewed. patient is in good spirits this am. she is happy about anticipated dc for tomorrow and we continue to discuss healthy responses to stress and frustration. she called the mgr of [facility] herself to discuss
returning there tomorrow. i spoke to this woman as well (landen carbajal [phone]) . it is agreed that if breanne continues to do reasonably she can be dc to [facility] tomorrow am and they will pick her up in the morning. ms carbajal will call crisis
to apprise re the time. i will call her scrips in to the pharmacy [phone], depakote level is on the low side 40's this is she reports prescribed for sz. tegretol level pending from serum drawn this am. pcp to regulate sz medications and meds
which are not psychiatric but i will call them in for tomorrow's dc. meds at de are as follows revia 50 mg q d ditropan 5 mg bid protonix 40 mg daily polyethylene glycol 17 gm daily tegretol 200 mg tid klonopin o.5 mg bid ddavp o.2 mg q hs colace
100 mg bid luvox 150/100 atarax 25 mg bid prazosin 2 mg q hs carafate one gr q d valproate 750/1000 vraylar 4.5 q day. have also contacted the php at [facility] for participation to start wednesday. she will eventually be a part of the [facility] program at [facility]
but is at this moment on a wait list.
[2023-12-23 11:13] LABS: Tegretol (Carbamazepine) 8.2 ug/ml (4-12)
[2023-12-23] MEDS: DEPAKENE 1000 MG PO (18:19)
[2023-12-23 20:31] VITALS: BP 114/78
[2023-12-23] MEDS: TYLENOL 650 MG PO (20:39)
[2023-12-23] MEDS: LUVOX 100 MG PO (22:23)
[2023-12-23] MEDS: MINIPRESS 2 MG PO (22:23)
[2023-12-23] MEDS: DDAVP 0.200000000000000011 MG PO (22:23)
[2023-12-23] MEDS: NON-FORMULARY ITEM 4.5 MG PO (22:33)
[2023-12-24] MEDS: BENADRYL 50 MG IM (00:40)
[2023-12-24] MEDS: HALDOL 5 MG IM (00:45)
[2023-12-24] MEDS: ATIVAN 2 MG IM (00:45)
--- NOTE | 2023-12-24 00:52 | ED.CRISIS ---
Addendum entered and electronically signed by James Hartman MD 12/24/23 03:03:
Signed
Original Note:
ED Crisis Note
ED Crisis Note
Subjective:
Patient here on a 302 for psychosis. I was called by nurse because patient woke up coughing and making repeated movements with her tongue and saying 'they are trying to strangle me.'
Objective:
Patient is sitting up in bed coughing frequently, sticking her tongue in and out of her mouth. She is saying 'they are trying to strangle me.' She is normotensive, pulse ox 99% on room air, phonating. No upper airway obstruction noted. Lungs are
clear to auscultation bilaterally.
Assessment/Plan:
Patient on a 302 awaiting disposition. She is now having apparently hallucinations and believes someone is trying to strangle her. Initially she was making some odd movements of her tongue and there was a question of whether this could be some
component of dystonia and so she was treated with Benadryl without improvement and in fact with worsening apparent hallucinations. She was given 5 mg of IM Haldol and 2 mg of IM Ativan to treat psychotic episode with hallucination. Behavior
improved, vitals remained stable. Will continue to monitor closely pending placement.
--- NOTE | 2023-12-24 01:29 | EDRN ---
late note due to patient care. pt woke up around 00:30 having a coughing fit. per rn who responded initially reported the patient was intermittently grabbing her throat and forcibly coughing. dr hilario at bedside for evaluation, verbal order for 50mg
IM benadryl. pt with no improvement after benadryl, verbal order from dr hilario for 2mg IM ativan and 5mg IM haldol. pt continues with intermittent forcible cough and reaching for throat.
01:00 dr hilario back at bedside for eval, pt coughing has lessened.
01:15 pt began to verbalize that she thought she was being strangled. pt reoriented to surroundings, reminded that she is safe and that no one is hurting her, pt cough has lessened and pt verbalizes that she is beginning to feel better
[2023-12-24] MEDS: LUVOX 150 MG PO (08:26)
[2023-12-24] MEDS: COLACE 100 MG PO (08:26)
[2023-12-24] MEDS: REVIA 50 MG PO (08:26)
[2023-12-24] MEDS: PROTONIX 40 MG PO (08:27)
[2023-12-24] MEDS: KLONOPIN 0.5 MG PO (08:27)
[2023-12-24] MEDS: DITROPAN 5 MG PO (08:27)
[2023-12-24] MEDS: TEGRETOL 200 MG PO (08:27)
[2023-12-24] MEDS: CARAFATE 1 GRAM PO (08:28)
[2023-12-24] MEDS: MIRALAX 17 GRAMS PO (08:28)
[2023-12-24] MEDS: DEPAKENE 750 MG PO (08:28)
[2023-12-24] MEDS: ATARAX 25 MG PO (08:28)
--- NOTE | 2023-12-24 13:54 | EDRN ---
7 tablets of vraylar counted with Pharmacist Salome. Given back to crisis workers as pt is being transported home.
== END 2023-12-24 14:01 ==
LOC: EMR 08:24
PROVIDERS: EMERGENCY PHYSICIAN Emergency Medicine; OTHER PHYSICIAN Psychiatry & Neurology Psychiatry
DX: R45.851 Suicidal ideations (principal); F32.A Depression, unspecified
CPT/HCPCS: 80156; 80164; 99285

== ENCOUNTER 2024-02-10 13:05 | Emergency (ER) | payer BC, MEDICARE, SELFPAY ==
[2024-02-10 13:23] VITALS: BP 122/90
[2024-02-10 14:22] VITALS: BP 99/62
[2024-02-10 15:00] VITALS: BP 90/62
[2024-02-10 15:01] VITALS: BP 90/62
--- NOTE | 2024-02-10 15:06 | ED.GENMED ---
History of Present Illness
General
Chief Complaint: Medication Reaction
Source: patient
Exam Limitations: none
Time Seen by Provider: 02/10/24 14:42
Travel History
Have you had any contact with someone who has COVID-19?: No
Do you have any symptoms of coronavirus? Fever > 100 degrees, chills, cough, shortness of breath, sore throat, loss of taste or smell, muscle aches, or headache?: No
History of Present Illness
History of Present Illness:
Patient presents the emergency department with increased somnolence. She was sent by her psychiatrist. He noted her to be falling asleep during the interview. Patient was given a as needed Zyprexa this morning after she demonstrated aggressive
behaviors and bit herself on the right arm. She denies any suicidality currently. She is tired but able to provide history.
Past History
Past History
ED Past Medical History: Psychiatric (Depression.)
ED Past Surgical History: None
Social History
Tobacco: Non-smoker
Alcohol: None
Drug: None
Personal: Single
Living: with family
Family History
Family History: Other (Nonsignificant)
Phy Exam
Physical Exam
Physical Exam:
GENERAL APPEARANCE: NAD, sleepy but arousable to voice, provides history
EYES lids/conjunctiva normal, PERRLA, pupils small
EARS/NOSE/THROAT Mucous membranes moist, uvula midline without oral pharyngeal erythema, exudate or swelling
HEAD/NECK normocephalic atraumatic, neck is supple.
RESPIRATORY respiratory effort normal, speaks in full sentences, no accessory muscle use. Lungs clear to auscultation without rhonchi, wheezes, rales
CARDIAC Regular rate and rhythm, no edema.
ABDOMINAL Soft, ND/NT. No pulsatile masses on exam, rebound tenderness, Maguire sign or pain over Mcburney's point.
MUSCLES/EXTREMITIES No abnormal range of motion, no swelling.
SKIN Warm, pink and dry. No rashes
NEUROLOGICAL Speech is clear and appropriate. Normal level of consciousness. 5/5 strength in all extremities.
PSYCH flat affect. Judgement/competence is appropriate
Course
Orders/Labs/Results
Orders:
Orders
02/10/24 13:28
Test Result ONCE
02/10/24 14:50
, Urine Qualitative Screen [HCG, Urine Qualitative Screen] Urgent
Date Specimen was Collected: 02/10/24
Time Specimen was Collected: 13:27
Urine Drug Abuse Screen Urgent
Date Specimen was Collected: 02/10/24
Time Specimen was Collected: 13:27
02/10/24 15:04
0.9% Sodium Chloride 1000 ml [Nss] 1,000 ml IV BOLUS
02/10/24 15:05
Ibuprofen [Motrin] 600 mg PO NOW STA
02/10/24 15:13
Acetaminophen Urgent
Alcohol Urgent
Complete Blood Count/With Diff Urgent
Comprehensive Metabolic Panel Urgent
Salicylate Urgent
Abnormal Lab Results
02/10/24
15:13
RBC 4.10 L 10^6/uL
(4.20-5.40)
MCV 99.3 H fL
(81.0-99.0)
MCH 32.7 H pg
(27.0-31.0)
MCHC 32.9 L g/dL
(33.0-37.0)
Neutrophils % 40.9 L %
(42.2-75.2)
Creatinine 0.5 L mg/dL
(0.6-1.0)
Total Protein 5.8 L g/dl
(6.3-8.2)
Salicylates < 1.0 L mg/dl
(2.0-20.0)
Acetaminophen < 10 L ug/ml
(10-30)
02/10/24 15:13
02/10/24 15:13
Vital Signs
Initial and Last Documented VS:
Initial Vital Signs
Temp Pulse Resp BP Pulse Ox
97.6 F 58 18 122/90 95
02/10/24 13:23 02/10/24 13:23 02/10/24 13:23 02/10/24 13:23 02/10/24 13:23
Last Documented Vital Signs
Temp Pulse Resp BP Pulse Ox
97.6 F 56 16 90/62 98
02/10/24 13:23 02/10/24 15:01 02/10/24 15:01 02/10/24 15:01 02/10/24 15:30
*Critical Care Note
Total Time (30-74mins, 75-104mins- exclusive of procedures): Not Applicable
ED Attending Note
ED Attending Note
ED Attending Note:
Patient monitored in the emergency department with return to normal mental status. She is eating and ambulating without difficulty. Requesting discharge.
-
Portions of this chart may have been created with voice recognition software.� Occasional wrong word or��sound alike� substitutions may have occurred due to the inherent limitations of voice recognition software.
Discharge Plan
Departure
Prescriptions:
No Action
acetaminophen [Tylenol] 325 mg Tablet
650 mg PO Q6H PRN (Reason: mild pain)
Triple Antibiotic 3.5mg-400 unit- 5,000 unit/gram ointment
1 applic TOPICAL BID@0800,1999
sucralfate 1 gram Tablet
1 g PO BID@0800,1600
naltrexone 50 mg Tablet
50 mg PO DAILY
clonazepam 0.5 mg Tablet
0.5 mg PO BID@1200,1999
Patient Comments:
12/12/2023, pt. filled this med. on 12/03/2023 for 22 tablets according to PDMP.
desmopressin 0.2 mg Tablet
0.2 mg PO DAILY@1999
hydroxyzine pamoate 50 mg Capsule
50 mg PO TID@0800,1199,1999
olanzapine 10 mg Tablet
10 mg PO DAILY PRN (Reason: agitation)
levocarnitine 330 mg Tablet
660 mg PO TID@0800,1199,1999
carbamazepine 200 mg tablet
200 mg PO TID@0800,1199,1999
valproic acid (as sodium salt) 250 mg/5 mL solution
750 mg PO DAILY
valproic acid (as sodium salt) 250 mg/5 mL solution
1,000 mg PO HS
lorazepam 2 mg Tablet
2 mg PO Q8HPRN PRN (Reason: anxiety)
Patient Comments:
12/12/2023, pt. filled this med. on 10/28/2023 for 15 tablets according to PDMP.
cephalexin 500 mg Capsule
500 mg PO TID
Patient Comments:
12/12/2023, per psych supervisor customer records division at [facility], pt. has 2 days left of this med. Pt. filled this med. on 12/03/2023 and is instructed to take one capsule TID for 10 days.
pantoprazole 40 mg Tablet,Delayed Release (Dr/Ec)
40 mg PO DAILY
docusate sodium 100 mg Capsule
100 mg PO BID@799,1999
bismuth subsalicylate [Stomach Relief] 262 mg tablet,chewable
262 mg PO Q6HPRN PRN (Reason: indigestion)
fluvoxamine 50 mg Tablet
150 mg PO BID
polyethylene glycol 3350 17 gram/dose powder
17 g PO DAILY@1999
oxybutynin chloride 5 mg Tablet
5 mg PO BID@0800,1600
fluticasone propionate 50 mcg/actuation [place],Suspension
1 spray INTRANASAL BID PRN (Reason: congestion)
prazosin 2 mg Capsule
2 mg PO HS
Vraylar 6 mg Capsule
6 mg PO DAILY@1999
Referrals:
UNKNOWN - PT NOT,INTERVIEWE [Family Provider] -
Interventions
Interventions:
ED-Skin Assessment Last Done: 02/10/24 14:33
ED- Pulmonary Assessment Last Done: 02/10/24 14:16
ED-EENT Assessment Last Done: 02/10/24 16:56
Discharge Date and Time
Print Language: CHADIAN
[2024-02-10 15:11] LABS: HCG, Urine Qualitative Screen Negative
[2024-02-10 15:20] LABS: Amphetamines Negative (Negative); Barbiturates Negative (Negative); Benzodiazepines Negative (Negative); Buprenorphine Negative (Negative); Cocaine Negative (Negative); Marijuana Negative (Negative); Methadone Negative (Negative); Methamphetamines Negative (Negative); Opiates Negative (Negative); Phencyclidine Negative (Negative); Tricyclic Antidepressants Negative (Negative)
[2024-02-10 15:36] LABS: % Basophils 0.2 % (0-2); % Eosinophils 2.1 % (0-6); % Immature Granulocytes 0.4 % (0-0.5); % Lymphocytes 47.4 % (20.5-51.1); % Neutrophils 40.9 % (42.2-75.2); Absolute Eosinophils 0.1 10^3/uL (0-0.7); Absolute Lymphocytes 2.5 10^3/uL (1.2-3.4); Absolute Monocytes 0.5 10^3/uL (0.1-0.6); Absolute Neutrophils 2.1 10^3/uL (1.4-6.5); Hematocrit 40.7 % (37.0-47.0); Hemoglobin 13.4 g/dL (12.0-16.0); Mean Corp Hgb Conc. 32.9 g/dL (33.0-37.0); Mean Corpuscular Hgb 32.7 pg (27.0-31.0); Mean Corpuscular Volume 99.3 fL (81.0-99.0); Mean Platelet Volume 9.8 fL (7.4-10.4); Nucleated Red Blood Cells % 0 %; Platelet Count 148 10^3/uL (130-400); Red Cell Dist. Width 12.7 % (11.5-14.5); White Blood Cell Count 5.2 10^3/uL (4.8-10.8)
[2024-02-10 15:38] LABS: ALT (SGPT) 18 U/L (0-35); AST (SGOT) 25 U/L (14-36); Albumin 3.8 g/dl (3.5-5.0); Alkaline Phosphatase 70 U/L (38-126); Blood Urea Nitrogen 13 mg/dl (7-17); Calcium 8.8 mg/dl (8.4-10.2); Carbon Dioxide 30 mmol/L (22-30); Chloride 101 mmol/L (98-107); Glucose 76 mg/dl (70-99); Potassium 4.5 mmol/L (3.5-5.1); Sodium 137 mmol/L (135-145); Total Bilirubin 0.3 mg/dl (0.2-1.3); Total Protein 5.8 g/dl (6.3-8.2); eGFR > 60.00
[2024-02-10] MEDS: MOTRIN 600 MG PO (15:39)
[2024-02-10] MEDS: NSS 1000 IV (15:39)
[2024-02-10 16:00] VITALS: BP 95/59
[2024-02-10 16:57] LABS: Acetaminophen < 10 ug/ml (10-30); Salicylate < 1.0 mg/dl (2.0-20.0)
[2024-02-10 17:00] VITALS: BP 112/99
[2024-02-10 17:02] LABS: Alcohol None Detected
== END 2024-02-10 18:06 | disposition home or self-care (01) ==
LOC: EMR 13:05
PROVIDERS: Emergency Medicine; EMERGENCY PHYSICIAN Emergency Medicine
DX: R40.0 Somnolence (principal); T42.6X5A Adverse effect of other antiepileptic and sedative-hypnotic drugs, initial encounter; F32.A Depression, unspecified
CPT/HCPCS: 99284; 96360; 80053; 80143; 80179; 80306; 81025; 82077; 85025

== ENCOUNTER → 2024-02-14 11:52 | Outpatient (REF) | payer BC, MEDICARE, SELFPAY | LOC: HWCARD 11:52 | PROVIDERS: ATTENDING PHYSICIAN Registered Nurse; FAMILY PHYSICIAN Family Medicine | DX: R94.31 Abnormal electrocardiogram [ECG] [EKG] (principal); Z79.899 Other long term (current) drug therapy | CPT/HCPCS: 93005 ==

== ENCOUNTER 2024-03-22 16:24 | Emergency (ER) | payer BC, MEDICARE, SELFPAY ==
[2024-03-22 16:31] VITALS: BP 129/95
[2024-03-22 16:50] LABS: Urine Albumin Negative (Neg - Trace); Urine Bilirubin Negative (Negative); Urine Character Clear (Clear); Urine Color Straw; Urine Glucose Negative (Negative); Urine Ketone Negative (Negative); Urine Leukocyte Negative (Negative); Urine Nitrite Negative (Negative); Urine Occult Blood Negative (Negative); Urine Urobilinogen Negative (Neg - 1+)
[2024-03-22 16:58] LABS: % Basophils 0.2 % (0-2); % Immature Granulocytes 0.7 % (0-0.5); % Lymphocytes 13.3 % (20.5-51.1); % Monocytes 7.1 % (1.7-9.3); % Neutrophils 78.7 % (42.2-75.2); Absolute Immature Granulocytes 0.1 10^3/uL (0-0.05); Absolute Lymphocytes 1.8 10^3/uL (1.2-3.4); Absolute Monocytes 0.9 10^3/uL (0.1-0.6); Absolute Neutrophils 10.4 10^3/uL (1.4-6.5); Mean Corp Hgb Conc. 34.2 g/dL (33.0-37.0); Mean Corpuscular Hgb 32.2 pg (27.0-31.0); Mean Corpuscular Volume 94.1 fL (81.0-99.0); Mean Platelet Volume 9.3 fL (7.4-10.4); Nucleated Red Blood Cells % 0 %; Platelet Count 239 10^3/uL (130-400); Red Blood Cell Count 4.04 10^6/uL (4.20-5.40); White Blood Cell Count 13.2 10^3/uL (4.8-10.8)
--- NOTE | 2024-03-22 17:00 | ED.GENMED ---
History of Present Illness
<Denise Celestin PA-C - Last Filed: 03/22/24 22:49>
General
Chief Complaint: Seizure
Source: patient
Exam Limitations: none
Time Seen by Provider: 03/22/24 16:42
Nursing documentation reviewed up to this point in time: agreed with
Travel History
Have you had any contact with someone who has COVID-19?: No
Do you have any symptoms of coronavirus? Fever > 100 degrees, chills, cough, shortness of breath, sore throat, loss of taste or smell, muscle aches, or headache?: No
History of Present Illness
History of Present Illness:
Patient is a 28-year-old female with history of epilepsy, bipolar, schizophrenia presenting via EMS from [facility] after reported possible seizure earlier today. Patient recalls sitting in a chair with her therapist when she started to feel some
brain fog and difficulties with her speech. The next thing she remembers is being woken up by EMS and they arrived. At this point patient is awake, alert, answering questions appropriately. She has a very mild headache but no other complaints at
this time.
I did speak to someone who works at [facility] who did not personally witness the event earlier but states that patient slouched down in the chair and had limited responsiveness for approximately 5 to 10 minutes. She did not hit her head.
Per patient�she takes Depakote and Tegretol. No recent nausea, vomiting, or missed doses.
Past History
<Denise Celestin PA-C - Last Filed: 03/22/24 22:49>
Past History
ED Past Medical History: Psychiatric (Depression.)
ED Past Surgical History: None
Social History
Tobacco: Non-smoker
Alcohol: None
Drug: None
Personal: Single
Living: with family
Family History
Family History: Other (Nonsignificant)
Review of Systems
<Denise Celestin PA-C - Last Filed: 03/22/24 22:49>
Review of Systems
Allergies reviewed?: Yes
All Other Systems: ROS reviewed and negative except as documented in HPI and ROS
Phy Exam
<Denise Celestin PA-C - Last Filed: 03/22/24 22:49>
Physical Exam
Physical Exam:
Vitals: Patient's vital signs are stable
General: Patient is somewhat drowsy appearing although in no apparent distress answering questions appropriately
Skin: Warm and dry, no rashes or lesions
Head: Normocephalic, atraumatic
Eyes: Sclera nonicteric. EOMs intact. No nystagmus. Pupils equal round and reactive to light bilaterally
Throat: Protecting airway. No blood in posterior pharynx. No oral lacerations or tongue loss
Neck: Normal ROM, no cervical spine tenderness, no meningismus.
Cardiac: Regular rate and rhythm, no murmurs.
Pulm: Normal respiratory effort, no wheezes, rales, rhonchi heard on exam.
Abdomen: Abdomen soft. No abdominal tenderness.
Extremities: No evidence of cyanosis or edema. Good distal pulses
Neuro: AAOx3. CN II-XII intact. No focal neurologic deficits. Normal finger-nose. Strength 5 out of 5 in upper and lower extremities. Sensation fully intact.
Psychiatric: Normal affect.
Course
<Denise Celestin PA-C - Last Filed: 03/22/24 22:49>
Orders/Labs/Results
Orders:
Orders
03/22/24 16:40
Complete Blood Count/With Diff Urgent
Comprehensive Metabolic Panel Urgent
HCG, Serum Qualitative Screen Urgent
Keppra (Levetiracetam) [S] Urgent
Urinalysis Reflex To Culture Urgent
Date Specimen was Collected: 03/22/24
Time Specimen was Collected: 16:34
03/22/24 17:05
0.9% Sodium Chloride 1000 ml [Nss] 1,000 ml IV BOLUS
Ketorolac [Toradol] 15 mg IV NOW STA
03/22/24 17:06
Add On- LAB Urgent
Tests Added?: serum qualitative hcg
03/22/24 17:29
Electrocardiogram (*1) Urgent
Reason for Study: Syncope
EKG- Treatment ONCE
03/22/24 17:31
Add On- LAB Urgent
Tests Added?: Depakane, Tegretol
03/22/24 18:36
Lorazepam [Ativan] 0.5 mg PO NOW STA
03/22/24 18:43
Ondansetron Injectable [Zofran] 4 mg IV NOW STA
03/22/24 18:59
Depakane Urgent
Tegretol (Carbamazepine) Urgent
Abnormal Lab Results
03/22/24 03/22/24
16:40 18:59
WBC 13.2 H 10^3/uL
(4.8-10.8)
RBC 4.04 L 10^6/uL
(4.20-5.40)
MCH 32.2 H pg
(27.0-31.0)
Abs Immat Gran (auto) 0.1 H 10^3/uL
(0-0.05)
Absolute Neuts (auto) 10.4 H 10^3/uL
(1.4-6.5)
Absolute Monos (auto) 0.9 H 10^3/uL
(0.1-0.6)
Immature Gran % 0.7 H %
(0-0.5)
Neutrophils % 78.7 H %
(42.2-75.2)
Lymphocytes % 13.3 L %
(20.5-51.1)
Creatinine 0.5 L mg/dL
(0.6-1.0)
Glucose 108 H mg/dl
(70-99)
Total Protein 6.2 L g/dl
(6.3-8.2)
Valproic Acid 40.5 L ug/ml
(50.0-120.0)
03/22/24 16:40
03/22/24 16:40
Vital Signs
Initial and Last Documented VS:
Initial Vital Signs
Temp Pulse Resp BP Pulse Ox
98.0 F 89 19 129/95 96
03/22/24 16:31 03/22/24 16:31 03/22/24 16:31 03/22/24 16:31 03/22/24 16:31
Last Documented Vital Signs
Temp Pulse Resp BP Pulse Ox
98.0 F 73 19 137/65 100
03/22/24 16:31 03/22/24 18:51 03/22/24 18:51 03/22/24 18:51 03/22/24 18:51
<Russell Gutierrez, DO - Last Filed: 03/22/24 19:44>
Orders/Labs/Results
Orders:
Orders
03/22/24 16:40
Complete Blood Count/With Diff Urgent
Comprehensive Metabolic Panel Urgent
HCG, Serum Qualitative Screen Urgent
Keppra (Levetiracetam) [S] Urgent
Urinalysis Reflex To Culture Urgent
Date Specimen was Collected: 03/22/24
Time Specimen was Collected: 16:34
03/22/24 17:05
0.9% Sodium Chloride 1000 ml [Nss] 1,000 ml IV BOLUS
Ketorolac [Toradol] 15 mg IV NOW STA
03/22/24 17:06
Add On- LAB Urgent
Tests Added?: serum qualitative hcg
03/22/24 17:29
Electrocardiogram (*1) Urgent
Reason for Study: Syncope
EKG- Treatment ONCE
03/22/24 17:31
Add On- LAB Urgent
Tests Added?: Depakane, Tegretol
03/22/24 18:36
Lorazepam [Ativan] 0.5 mg PO NOW STA
03/22/24 18:43
Ondansetron Injectable [Zofran] 4 mg IV NOW STA
03/22/24 18:59
Depakane Urgent
Tegretol (Carbamazepine) Urgent
Abnormal Lab Results
03/22/24 03/22/24
16:40 18:59
WBC 13.2 H 10^3/uL
(4.8-10.8)
RBC 4.04 L 10^6/uL
(4.20-5.40)
MCH 32.2 H pg
(27.0-31.0)
Abs Immat Gran (auto) 0.1 H 10^3/uL
(0-0.05)
Absolute Neuts (auto) 10.4 H 10^3/uL
(1.4-6.5)
Absolute Monos (auto) 0.9 H 10^3/uL
(0.1-0.6)
Immature Gran % 0.7 H %
(0-0.5)
Neutrophils % 78.7 H %
(42.2-75.2)
Lymphocytes % 13.3 L %
(20.5-51.1)
Creatinine 0.5 L mg/dL
(0.6-1.0)
Glucose 108 H mg/dl
(70-99)
Total Protein 6.2 L g/dl
(6.3-8.2)
Valproic Acid 40.5 L ug/ml
(50.0-120.0)
03/22/24 16:40
03/22/24 16:40
Vital Signs
Initial and Last Documented VS:
Initial Vital Signs
Temp Pulse Resp BP Pulse Ox
98.0 F 89 19 129/95 96
05/29/24 16:31 03/22/24 16:31 03/22/24 16:31 03/22/24 16:31 03/22/24 16:31
Last Documented Vital Signs
Temp Pulse Resp BP Pulse Ox
98.0 F 73 19 137/65 100
03/22/24 16:31 03/22/24 18:51 03/22/24 18:51 03/22/24 18:51 03/22/24 18:51
<Denise Celestin PA-C - Last Filed: 03/22/24 22:49>
MDM/Problems Addressed
Differential Diagnosis Includes:
Not limited to: Epilepsy, medication side effect, dehydration, cardiac arrhythmia, syncope
MDM/Problems Addressed:
28 year old female with history as documented presenting for evaluation following what appears to be a breakthrough seizure. No head strike or other injuries sustained during event. Patient sitting comfortably in bed with no acute complaints at this
time, other than generalized fatigue and mild headache. Vitals stable. Exam as above. No focal neurologic deficits. Will check basic labs, EKG. Toradol, IVF. Will closely monitor and reassess. Will send for levels of Tegretol and Depakote to ensure
therapeutic.
Labs noted. Mild leukocytosis likely reactive. No other clinically significant abnormalities. EKG with normal sinus rhythm. Patient developed nausea and mild agitation which we treated with zofran.
Tegretol level resulted and therapeutic. Depakote level slightly subtherapeutic at 40.5. Patient has remained stable in emergency department without evidence of repeat seizure. Stable for discharge with increase in Depakote and neurology follow-up
out patient. Neurology referral provided to patient. Return precautions discussed.
Chronic conditions affecting care:
Epilepsy
Acute Exacerbation and/or Progression of Chronic Illness:
Breakthrough seizure secondary to sub therapeutic Depakote levels
<Denise Celestin PA-C - Last Filed: 03/22/24 22:49>
*Pulse Oximetry
Patient hypoxic: no
*EKG
Interpreted by ED Provider?: Yes
EKG Intrepretation Date: 03/22/24
Interpretation: normal
Heart Rate: 76
Ischemia: non-specific ST changes
*Qualified Craft Worker Electrician Interpretation
Rate: Qualified Craft Worker Electrician- N/A
*Critical Care Note
Total Time (30-74mins, 75-104mins- exclusive of procedures): Not Applicable
Data Reviewed
Source: patient, family, ambulance crew and retirement
<Russell Gutierrez DO - Last Filed: 03/22/24 19:44>
Update Note
Update Note:
Carbamazepine level within normal limits. Depakote level is a little low. Patient is unsure that she is getting adequate amount of Depakote at the facility. Will increase her daily regimen to 1000 mg and continue the nighttime regimen as 1000 mg.
Family comfortable this plan and will take her back
ED Attending Note
<Denise Celestin PA-C - Last Filed: 03/22/24 22:49>
-
Portions of this chart may have been created with voice recognition software.� Occasional wrong word or��sound alike� substitutions may have occurred due to the inherent limitations of voice recognition software.
<Russell Gutierrez, - Last Filed: 03/22/24 19:44>
ED Attending Note
Patient seen and examined by attending physician: Yes
I performed the substantive portion of visit, reviewed & personally made and approve the management plan that is documented in note by myself or ANDRÉS.: Yes
ED Attending Note:
I have seen and evaluated the patient with a [id number] encounter. I have spoken to the advance practicer provider and involved in the medical history, the physical exam, medical decision making.
Evaluation and management service: agree unless noted differently below.
Results interpretation: agree unless noted differently below.
Focused HPI: 28-year-old female presenting for evaluation of a breakthrough seizure. [facility] and there was concern for seizure-like activity. Patient does admit that she does not remember much of it. She denies
incontinence or tongue bite. She does have a history of seizures and is currently on carbamazepine and Depakote. She believes that the people at the [facility] are not measuring her medicines appropriately
Physical exam: Sitting in bed comfortably. No acute distress. Holding full conversation without difficulty
Medical Decision Making: Will obtain basic blood work and Tegretol and Depakote levels
Discharge Plan
Departure
Patient Disposition: Home (Routine Discharge)
Date of Disposition: 03/22/24
Time of Disposition: 19:38
Patient with high blood pressure during this ER visit?: No
Discharge Problem:
Seizure
Instructions: Seizures, Adult (DC)
Prescriptions:
New
valproic acid (as sodium salt) 500 mg/10 mL (10 mL) solution
1,000 mg PO DAILY 30 Days Qty: 600 0RF
valproic acid (as sodium salt) 500 mg/10 mL (10 mL) solution
1,000 mg PO HS 30 Days Qty: 600 0RF
No Action
acetaminophen [Tylenol] 325 mg Tablet
650 mg PO Q6H PRN (Reason: mild pain)
Triple Antibiotic 3.5mg-400 unit- 5,000 unit/gram ointment
1 applic TOPICAL BID@0800,1999
sucralfate 1 gram Tablet
1 g PO BID@0800,1600
naltrexone 50 mg Tablet
50 mg PO DAILY
clonazepam 0.5 mg Tablet
0.5 mg PO BID@1199,1999
Patient Comments:
12/12/2023, pt. filled this med. on 12/03/2023 for 22 tablets according to PDMP.
desmopressin 0.2 mg Tablet
0.2 mg PO DAILY@1999
hydroxyzine pamoate 50 mg Capsule
50 mg PO TID@0800,1200,1999
olanzapine 10 mg Tablet
10 mg PO DAILY PRN (Reason: agitation)
levocarnitine 330 mg Tablet
660 mg PO TID@0800,1199,1999
carbamazepine 200 mg tablet
200 mg PO TID@0800,1199,1999
valproic acid (as sodium salt) 250 mg/5 mL solution
750 mg PO DAILY
valproic acid (as sodium salt) 250 mg/5 mL solution
1,000 mg PO HS
lorazepam 2 mg Tablet
2 mg PO Q8HPRN PRN (Reason: anxiety)
Patient Comments:
12/12/2023, pt. filled this med. on 10/28/2023 for 15 tablets according to PDMP.
cephalexin 500 mg Capsule
500 mg PO TID
Patient Comments:
12/12/2023, per psych supervisor polishing at [facility], pt. has 2 days left of this med. Pt. filled this med. on 12/03/2023 and is instructed to take one capsule TID for 10 days.
pantoprazole 40 mg Tablet,Delayed Release (Dr/Ec)
40 mg PO DAILY
docusate sodium 100 mg Capsule
100 mg PO BID@799,1999
bismuth subsalicylate [Stomach Relief] 262 mg tablet,chewable
262 mg PO Q6HPRN PRN (Reason: indigestion)
fluvoxamine 50 mg Tablet
150 mg PO BID
polyethylene glycol 3350 17 gram/dose powder
17 g PO DAILY@1999
oxybutynin chloride 5 mg Tablet
5 mg PO BID@0800,1600
fluticasone propionate 50 mcg/actuation [place],Suspension
1 spray INTRANASAL BID PRN (Reason: congestion)
prazosin 2 mg Capsule
2 mg PO HS
Vraylar 6 mg Capsule
6 mg PO DAILY@1999
Referrals:
Jose Luis Gaston MD [Active] - Call in 1-3 days for appt
Sonia Nielsen MD [Family Provider] -
Activity Restrictions/Additional Instructions:
As we discussed, your Tegretol levels are therapeutic. However, your Depakote levels are little low. Please start taking 1000 mg of Depakote in the day and 1000 mg at night. Please have your levels rechecked in about 2 weeks or so.
Please make an appointment to see the neurologist and return for worsening symptoms.
Interventions
Interventions:
*General Assessment Last Done: 03/22/24 16:42
ED- Fall Risk Assessment Last Done: 03/22/24 16:45
*ED COVID-19 Vaccine History Last Done: 03/22/24 16:42
*Nursing Disposition Last Done: 03/22/24 20:07
ED- Cardiac Assessment Last Done: 03/22/24 16:45
ED- Neurological Assessment Last Done: 03/22/24 16:45
ED- Pulmonary Assessment Last Done: 03/22/24 16:45
Discharge Date and Time
Discharge Date/Time: 03/22/24 20:07
Print Language: ESTONIAN
[2024-03-22 17:04] LABS: ALT (SGPT) 23 U/L (0-35); AST (SGOT) 27 U/L (14-36); Alkaline Phosphatase 90 U/L (38-126); Blood Urea Nitrogen 15 mg/dl (7-17); Calcium 9.2 mg/dl (8.4-10.2); Carbon Dioxide 27 mmol/L (22-30); Chloride 104 mmol/L (98-107); Glucose 108 mg/dl (70-99); Potassium 4.8 mmol/L (3.5-5.1); Sodium 138 mmol/L (135-145); Total Bilirubin 0.2 mg/dl (0.2-1.3); Total Protein 6.2 g/dl (6.3-8.2); eGFR > 60.00
[2024-03-22] MEDS: NSS 1000 IV (17:34)
[2024-03-22] MEDS: TORADOL 15 MG IV (17:34)
[2024-03-22 17:43] LABS: HCG, Serum Qualitative Screen Negative
[2024-03-22] MEDS: ZOFRAN 4 MG IV (18:47)
[2024-03-22] MEDS: ATIVAN 0.5 MG PO (18:47)
[2024-03-22 18:51] VITALS: BP 137/65
[2024-03-22 19:25] LABS: Tegretol (Carbamazepine) 11.4 ug/ml (4-12)
[2024-03-22 19:26] LABS: Depakane 40.5 ug/ml (50.0-120.0)
[2024-03-24 22:18] LABS: Keppra (Levetiracetam) <2 ug/mL (10-40)
== END 2024-03-22 20:07 | disposition home or self-care (01) ==
LOC: EMR 16:24
PROVIDERS: Physician Assistant; EMERGENCY PHYSICIAN Student in an Organized Health Care Education/Training Program; FAMILY PHYSICIAN Internal Medicine
DX: G40.909 Epilepsy, unspecified, not intractable, without status epilepticus (principal); F20.9 Schizophrenia, unspecified
CPT/HCPCS: 99284; 96374; 96375; 96361; 80053; 80156; 80164; 80177; 81003; 84703; 85025; 93005

== ENCOUNTER 2024-03-27 09:58 | Emergency (ER) | payer MEDICARE, SELFPAY ==
[2024-03-27 10:02] VITALS: BP 117/83
[2024-03-27 10:03] VITALS: BMI 29.1
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
[2024-03-27 12:09] LABS: % Basophils 0.2 % (0-2); % Immature Granulocytes 0.7 % (0-0.5); % Monocytes 10.3 % (1.7-9.3); % Neutrophils 50.8 % (42.2-75.2); Absolute Lymphocytes 2.2 10^3/uL (1.2-3.4); Absolute Monocytes 0.6 10^3/uL (0.1-0.6); Hematocrit 39.1 % (37.0-47.0); Hemoglobin 12.9 g/dL (12.0-16.0); Mean Corpuscular Hgb 31.9 pg (27.0-31.0); Mean Corpuscular Volume 96.5 fL (81.0-99.0); Mean Platelet Volume 9.2 fL (7.4-10.4); Nucleated Red Blood Cells % 0 %; Platelet Count 236 10^3/uL (130-400); Red Blood Cell Count 4.05 10^6/uL (4.20-5.40); Red Cell Dist. Width 12.9 % (11.5-14.5); White Blood Cell Count 5.8 10^3/uL (4.8-10.8)
[2024-03-27 12:19] LABS: HCG, Urine Qualitative Screen Negative
[2024-03-27 12:23] LABS: ALT (SGPT) 17 U/L (0-35); AST (SGOT) 24 U/L (14-36); Acetaminophen < 10 ug/ml (10-30); Albumin 4.2 g/dl (3.5-5.0); Alkaline Phosphatase 88 U/L (38-126); Amphetamines Negative (Negative); Barbiturates Negative (Negative); Benzodiazepines Positive (Negative); Blood Urea Nitrogen 14 mg/dl (7-17); Buprenorphine Negative (Negative); Calcium 9.3 mg/dl (8.4-10.2); Carbon Dioxide 26 mmol/L (22-30); Chloride 105 mmol/L (98-107); Cocaine Negative (Negative); Estimated Creatinine Clearance > 125 ml/min; Glucose 87 mg/dl (70-99); Marijuana Negative (Negative); Methadone Negative (Negative); Methamphetamines Negative (Negative); Opiates Negative (Negative); Phencyclidine Negative (Negative); Potassium 4.7 mmol/L (3.5-5.1); Salicylate < 1.0 mg/dl (2.0-20.0); Sodium 139 mmol/L (135-145); Total Protein 6.5 g/dl (6.3-8.2); Tricyclic Antidepressants Negative (Negative); eGFR > 60.00
[2024-03-27 13:00] LABS: TSH Reflex To Free T4 8.09 uIU/ml (0.47-4.68)
[2024-03-27 13:05] LABS: Total Bilirubin 0.3 mg/dl (0.2-1.3)
[2024-03-27 13:25] LABS: Fentanyl, Urine Negative (Negative)
[2024-03-27 13:29] LABS: Free T4 0.84 ng/dl (0.78-2.19)
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
[2024-03-27] MEDS: ATIVAN 2 MG IM (15:56)
[2024-03-27 20:23] VITALS: BP 128/78
== END 2024-03-27 22:22 ==
LOC: EMR 09:58
PROVIDERS: EMERGENCY PHYSICIAN Emergency Medicine
DX: R45.851 Suicidal ideations (principal); F25.9 Schizoaffective disorder, unspecified; F31.9 Bipolar disorder, unspecified; R56.9 Unspecified convulsions; F32.A Depression, unspecified; Z91.51 Personal history of suicidal behavior; Z88.8 Allergy status to other drugs, medicaments and biological substances; Z91.041 Radiographic dye allergy status; Z91.018 Allergy to other foods
CPT/HCPCS: 99285; 96372; 80053; 80143; 80179; 80306; 80307; 81025; 82077; 84439; 84443; 85025